=== PATIENT | female | born 1995 | race Caucasian/White ===

== ENCOUNTER 2017-05-03 10:55 | Emergency (ER) | payer BC ==
[~2017-05-03] VITALS: Ht 162.6 cm; Wt 90.7 kg
--- OUTSIDE RECORDS SUMMARY | 2017-05-03 11:08 | External Medical Summary Rpt | CCD ---
Author Author , ISABELLE WALTON Address Unknown Phone [email or web address] Immunization Name Date Rout CVX Reac Dose Comm Prov Is Faci e tion ent ider Refu lity Give sed n MCV4 08-2 147 999 Hist H135 No H135 UF 1-20 oric 15 al Info rmat ion - Sour ce Unsp ecif ied MCV4 07-2 147 999 Hist H135 No H135 UF 9-20 oric 09 al Info rmat ion - Sour ce Unsp ecif ied Tdap 07-2 115 999 Hist H135 No H135 , 9-20 oric Adso 09 al rbed Info rmat ion - Sour ce Unsp ecif ied DTaP 07-1 107 999 Hist H135 No H135 , UF 7-20 oric 02 al Info rmat ion - Sour ce Unsp ecif ied Aris 07-1 10 999 Hist H135 No H135 o-IP 7-20 oric V 02 al Info rmat ion - Sour ce Unsp ecif ied MMR 07-1 3 999 Hist H135 No H135 7-20 oric 02 al Info rmat ion - Sour ce Unsp ecif ied MMR 07-2 3 999 Hist H135 No H135 9-19 oric 99 al Info rmat ion - Sour ce Unsp ecif ied DTaP 07-2 107 999 Hist H135 No H135 , UF 9-19 oric 99 al Info rmat ion - Sour ce Unsp ecif ied Hep 03-0 8 999 Hist H135 No H135 B, 8-19 oric ped/ 99 al adol Info rmat ion - Sour ce Unsp ecif ied Aris 03-0 2 999 Hist H135 No H135 o-OP 8-19 oric V 99 al Info rmat ion - Sour ce Unsp ecif ied DTaP 12-2 107 999 Hist H135 No H135 , UF 1-19 oric 98 al Info rmat ion - Sour ce Unsp ecif ied Hib, 12-2 17 999 Hist H135 No H135 UF 1- oric 98 al Info rmat ion - Sour ce Unsp ecif ied DTaP 09- 107 999 Hist H135 No H135 , UF 8- oric 98 al Info rmat ion - Sour ce Unsp ecif ied Hib, 09- 17 999 Hist H135 No H135 UF 8- oric 98 al Info rmat ion - Sour ce Unsp ecif ied Aris - 10 999 Hist H135 No H135 o-IP 8- oric V 98 al Info rmat ion - Sour ce Unsp ecif ied Aris 05- 10 999 Hist H135 No H135 o-IP 9- oric V 98 al Info rmat ion - Sour ce Unsp ecif ied Hib, 05- 17 999 Hist H135 No H135 UF 9- oric 98 al Info rmat ion - Sour ce Unsp ecif ied DTaP 05- 107 999 Hist H135 No H135 , UF 9- oric 98 al Info rmat ion - Sour ce Unsp ecif ied Hep 03-3 8 999 Hist H135 No H135 B, 0-19 oric ped/ 98 al adol Info rmat ion - Sour ce Unsp ecif ied
--- OUTSIDE RECORDS SUMMARY | 2017-05-03 11:08 | External Medical Summary Rpt | CCD ---
Author Author , ISABELLE WALTON Address Unknown Phone [email or web address] Immunization Name Date Rout CVX Reac Dose [...]
--- OUTSIDE RECORDS SUMMARY | 2017-05-03 11:08 | External Medical Summary Rpt | CCD ---
Author Author [employer] Organization [employer] Address Unknown Phone Unavailable Purpose Continuity of Care Document - through 2016
--- OUTSIDE RECORDS SUMMARY | 2017-05-03 11:08 | External Medical Summary Rpt ---
Author Author HEMALATHANA Greenberg, ISABELLE [employer] Organization [employer] Address Unknown Phone Unavailable Payers Section Payer Plan Name Group ID Member ID Coverage Coverage Start End Date Date BLUE "" [id number] No No CROSS O/P 999 informati informati on in on in source source data data SPECIAL "" [id number] No No RISK informati informati SERVICES on in on in source source data data BLUE "" [id number] No No CROSS 999 informati informati on in on in source source data data BLUE "" [id number] No No CROSS 999 informati informati PHYSICIAN on in on in source source data data SPECIAL "" [id number] No No RISK informati informati SERVICES on in on in source source data data Results XR UPPER GI Observa Value Referen Units Interpr Notes Date tion ce etation Range XR \\.br\\ No No No No Nov 19 UPPER informa informa informa informa 2016 GI tion in tion in tion in tion in 10:01 source source source source AM data data data data [facility]\\.br\\ [address]\\.br \\ [facility] [place] [address]\\. br\\\\.br \\ ------- --NAME- ------- - NUMBER SEX AGE ADMIT DISC. XRAY# F/C TYPE\\.b r\\ KENDRA ROELLANA N [id number] F 20 11/20/15 11/20/15 [id number] BB O/P\\.br \\ DATE OF : [birth year] M/R# [id number] PH#: RM\\.br\\ LOCATIO N: TRANSCR IBED: 6 17:05\\. br\\ [place] [id number] COMPLET ED:11/06 09/21 11:09 CGS [id number]\\. br\\ Diagnos is: REFLUX\\ .br\\\\.b r\\ PHYSICI AN: EISENHA UER\\.br \\\\.br\\\\ .br\\=== ======= ======= ======= ======= ======= ======= ======= ======= ======= ======= ======\\ .br\\ RADIOLO GY REPORT\\ .br\\=== ======= ======= ======= ======= ======= ======= ======= ======= ======= ======= ======\\ .br\\ORD ER DATE and TIME: 016 1001\\.b r\\\\.br\\ \\.br\\AI R-CONTR AST UPPER GI, 11/20/19 16:\\.br \\\\.br\\C LINICAL HISTORY : Chest pressur e with history of gastroe sophage al reflux and\\.br \\distal esophag eal ulcer\\. br\\\\.br \\COMPAR JANN: Upper GI, 10/02/19 07\\.br\\ \\.br\\TE CHNIQUE : E-Z gas crystal s followe d by barium were adminis tered orally and\\.br \\multip le spot films of the esophag us, stomach , duodenu m obtaine d. 2.2 minutes \\.br\\of fluoros copy was utilize d for exam.\\. br\\\\.br \\FINDIN GS: The esophag us demonst rated normal caliber and mucosal pattern .\\.br\\T here is no hiatal hernia and no gastroe sophage al reflux could be elicite d.\\.br\\ There is no esophag eal ulcer and a 13 mm barium tablet passes into the stomach \\.br\\wi thout difficu lty. Primary esophag eal perista lsis is somewha t weakene d with\\.b r\\clear ance of the esophag us by seconda ry perista lsis in the supine positio n.\\.br\\ The stomach demonst rates normal caliber , perista lsis, and mucosal pattern .\\.br\\T here is no large gastric ulcer or mass. The duodenu m is unremar kable without \\.br\\ul cer, strictu re, or filling defect. \\.br\\\\. br\\IMPR ESSION: \\.br\\\\. br\\1. Weakene d primary esophag eal perista lsis versus esophag eal dysmoti lity.\\. br\\Othe rwise normal examina tion.\\. br\\\\.br \\\\.br\\E lectron ically Signed By:\\.br \\EDUAR MURILLO MD,RADI OLOGIST \\.br\\Da te/Time : 6 17:05\\. br\\ CT ABD WITH Observa Value Referen Units Interpr Notes Date tion ce etation Range CT ABD \\.br\\ No No No No Nov 10 WITH informa informa informa informa 2015 tion in on in tion in tion in 9:29 AM source source source source data data data data [facility]\\.br\\ [address]\\.br \\ [facility] [place] [address]\\. br\\\\.br \\ ------- --NAME- ------- - NUMBER SEX AGE ADMIT DISC. XRAY# F/C TYPE\\.b r\\ KENDRA ESTEBAN N [id number] F 20 11/16/15 11/16/15 [id number] BB O/P\\.br \\ DATE OF : 998 M/R# [id number] PH#: RM\\.br\\ LOCATIO N: TRANSCR IBED: 6 17:57\\. br\\ CT ABD WITH [id number] COMPLET ED:11/06 10:27 ASN [id number]\\. br\\ Diagnos is: GASTRIT IS\\.br\\ \\.br\\ PHYSICI AN: EISENHA UER\\.br \\\\.br\\\\ .br\\=== ======= ======= ======= ======= ======= ======= ======= ======= ======= ======= ======\\ .br\\ RADIOLO GY REPORT\\ .br\\=== ======= ======= ======= ======= ======= ======= ======= ======= ======= ======= ======\\ .br\\ORD ER DATE and TIME: 016 0929\\.b r\\\\.br\\ \\.br\\CT ABDOMEN WITH CONTRAS T, 11/16/19 16:\\.br \\\\.br\\C LINICAL HISTORY : Chest pain and upper abdomin al pain with hiatal hernia and\\.br \\gastro esophag eal reflux. History of esophag eal ulcer, gastrit is, and\\.br \\duoden itis.\\. br\\\\.br \\COMPAR JANN: None.\\. br\\\\.br \\TECHNI QUE: Multipl e axial images through the abdomen were obtaine d followi ng\\.br\\ the adminis tration of intrave nous and enteric contras t. This data was used to\\.br\\ perform coronal reconst ruction s. [employer] 's "Sure Exposur e 3D" automat ed\\.br\\ exposur e control was utilize d to reduce patient 's radiati on dose.\\. br\\\\.br \\FINDIN GS: The visuali zed lung bases are clear. The heart is at the upper\\. br\\limi ts of normal in size. The visuali zed osseous structu res are unremar kable.\\ .br\\\\.b r\\There is focal fatty infiltr ation along the fissure for the falcifo rm ligamen t\\.br\\t he liver. The gallbla dder is unremar kable. Gallsto cady are not exclude d by\\.br\\ CT. Granulo matous calcifi cations involve the spleen. There is persist ent\\.br \\ lobulat ion of the kidneys , more promine nt on the left. Pancrea s and\\.br \\adrena l glands are within normal limits area\\.b r\\\\.br\\ There is no appreci able enteric contras t within the visuali zed bowel. There\\. br\\is equivoc al minor contras t within the ascendi ng colon. The visuali zed\\.br \\stomac h, small bowel, and colon are unremar kable. The aorta is normal in\\.br\\ caliber . There is no adenopa thy or ascites within visuali zed abdomen .\\.br\\\\ .br\\IMP RESSION :\\.br\\\\ .br\\1. No acute intra-a bdomina l process .\\.br\\\\ .br\\2. Borderl ine cardiom egaly.\\ .br\\\\.b r\\\\.br\\ Electro nically Signed By:\\.br \\EDUAR MURILLO MD,RADI OLOGIST \\.br\\Da te/Time : 6 17:57\\. br\\ Choriogonadotropin.beta subunit ( test) [Presence] in Urine Observa Value Referen Units Interpr Notes Date tion ce etation Range Choriog NEGATIV NL: No No NOTE: Aug 28 onadotr E NEGATIV informa informa A urine 2015 opin.be E tion in tion in HCG 1:02 PM ta source source reporte subunit data data d as Positiv (pregna e, <25 ncy mIU/ml test) is not [Presen a ce] in definit Urine ivediag nosis of pregnan cy. A second specime n may need to be obtaine dand tested after 48 hours. If waiting 48 hours is not medical lyadvis able, the test result should be confirm ed using a quantit ativeHC G serum test. Choriogonadotropin.beta subunit ( test) [Presence] in Urine Observa Value Referen Units Interpr Notes Date tion ce etation Range Choriog NEGATIV NL: No No NOTE: Jul 11 onadotr E NEGATIV informa informa A urine 2015 opin.be E tion in tion in HCG 6:49 AM ta source source reporte subunit data data d as Positiv (pregna e, <25 ncy mIU/ml test) is not [Presen a ce] in definit Urine ivediag nosis of pregnan cy. A second specime n may need to be obtaine dand tested after 48 hours. If waiting 48 hours is not medical lyadvis able, the test result should be confirm ed using a quantit ativeHC G serum test. XR CHEST AP LA Observa Value Referen Units Interpr Notes Date tion ce etation Range XR No No No No Jun 18 CHEST informa informa informa informa 2016 AP LA tion in tion in tion in tion in 11:53 source source source source AM data data data data [facility]\\.br\\ [address]\\.br \\ [place] [place] [address]\\. br\\\\.br \\ RADIOLO GY REPORT\\ .br\\ Name: KENDRA Kramer\\.br\\ Patient #: [id number] Stay Type: O/P\\.br \\ Age: 19 Room:\\. br\\ : 998 Sex: F\\.br\\ Orderin g Phys: BRANDY FALCON MR#: [id number]\\. br\\ Family Phys: BRANDY FALCON Pt Phone: [phone]\\. br\\ Admitti ng Phys: BRANDY FALCON\\. br\\ Unsig daysi Transcr iptions represe nt a prelimi nary report and do\\.br\\ not reflect a medical or legal documen t.\\.b r\\\\.br\\ \\.br\\ [place] [id number] COMPLET E:06/18 12:01 AJJ [id number]\\. br\\ (REASON FOR CHEST: UPPER RESP INFECTI ON\\.br\\ \\.br\\\\. br\\\\.br \\ HISTORY : 19 year-ol d female with chest pain, cough, and shortne ss of breath. \\.br\\\\. br\\ FINDING S: PA and lateral radiogr aphs of the chest dated 06/18/19 16. No prior studies are\\.br \\ availab le for compari son.\\.b r\\\\.br\\ Several calcifi ed granulo mas bilater ally. No pulmona ry infiltr ate is identif ied. No pleural effusio n\\.br\\ or pneumot horax is seen. Heart size is normal. No acute displac ed rib fractur es are identif ied.\\.b r\\ Mild serpent ine scolios is of the thoraci c spine.\\ .br\\\\.b r\\ IMPRESS ION:\\.b r\\ No acute radiogr aphic abnorma lities are identif ied in the chest.\\ .br\\ Mild scolios is.\\.br \\\\.br\\ Electro nically reviewe d and signed by:\\.br \\ Hever EL MD\\.br\\ RADIOLO GIST/ 08:34\\. br\\\\.br \\ Dictati on Date/Ti me: 06/18/1513:02 Dictate d By: Hever EL MD RADIOLO [facility]\\.b r\\ Transcr . Date/Ti me: 06/18/15 16:15 Transcr . Init.: rj\\.br \\\\.br\\ Copy for: BRANDY WHITTAKER via fax\\.br \\\\.br\\ CHLAMYDIA AND GONORRHEA TESTING Observa Value Referen Units Interpr Notes Date tion ce etation Range COLLECT FCHD No No No No Jul 06 OR informa informa informa informa 2014 tion in tion in tion in tion in 3:30 PM source source source source data data data data ETHNICI WHITE, No No No No Jul 06 TY NON-HIS informa informa informa informa 2015 PANIC tion in tion in tion in tion in 3:30 PM source source source source data data data data KIT 3-31-15 No No No No Jul 06 EXPIRAT informa informa informa informa 2015 ION tion in tion in tion in tion in 3:30 PM DATE source source source source data data data data SYMPTOM NO No No No No Jul 06 S informa informa informa informa 2015 tion in tion in tion in tion in 3:30 PM source source source source data data data data REASON SEX No No No No Jul 06 FOR PARTNER informa informa informa informa 2015 REQUEST tion in tion in tion in tion in 3:30 PM REFERRA source source source source L data data data data SPECIME FEMALE No No No No Jul 06 N ENDOCER informa informa informa informa 2015 SOURCE VICAL tion in tion in tion in tion in 3:30 PM source source source source data data data data PREGNAN NO No No No No Jul 06 T informa informa informa informa 2014 tion in tion in tion in tion in 3:30 PM source source source source data data data data CHART [id number] No No No No Jul 06 NUMBER 98 informa informa informa informa 2015 tion in tion in tion in tion in 3:30 PM source source source source data data data data Chlamyd NEGATIV No No No NEGATIV Jul 06 ia E informa informa informa E 2015 trachom tion in tion in tion in RESULT= 3:30 PM atis source source source WITHIN rRNA data data data NORMAL [Presen ce] in LIMITSP Unspeci OSITIVE fied specime RESULT= n by Probe & ABNORMA target LEQUIVO JANN amplifi RESULT= cation method INDETER MINATEU NSATISF ACTORY RESULT= INVALID Neisser NEGATIV No No No NEGATIV Jul 06 ia E informa informa informa E 2015 gonorrh tion in tion in tion in RESULT= 3:30 PM oeae source source source WITHIN rRNA data data data NORMAL [Presen ce] in LIMITSP Unspeci OSITIVE fied specime RESULT= n by Probe & ABNORMA target LEQUIVO JANN amplifi RESULT= cation method INDETER MINATEU NSATISF ACTORY RESULT= INVALID THE APTIMA COMBO 2 ASSAY IS NOT INTENDE D FOR THE EVALUAT ION OF SUSPECT EDSEXUA L ABUSE OR FOR OTHER MEDICO- LEGAL INDICAT IONS. FOR THOSE PATIENT S FORWHOM A FALSE POSITIV E RESULT MAY HAVE ADVERSE PSYCHO- SOCIAL IMPACT, THE CDCRECO MMENDS RETESTI NG.\\.br \\This report contain s patient informa tion that must be protect ed in accorda nce with the Health Insuran ce Portabi lity and Account ability Act. CHLAMYDIA AND GONORRHEA TESTING Observa Value Referen Units Interpr Notes Date tion ce etation Range COLLECT FCHD No No No No Jul 06 OR informa informa informa informa 2014 tion in tion in tion in tion in 3:30 PM source source source source data data data data ETHNICI WHITE, No No No No Jul 06 TY NON-HIS informa informa informa informa 2015 PANIC tion in tion in tion in tion in 3:30 PM source source source source data data data data KIT --15 No No No No Jul 06 EXPIRAT informa informa informa informa 2015 ION tion in tion in tion in tion in 3:30 PM DATE source source source source data data data data SYMPTOM NO No No No No Jul 06 S informa informa informa informa 2015 tion in tion in tion in tion in 3:30 PM source source source source data data data data REASON SEX No No No No Jul 06 FOR PARTNER informa informa informa informa 2015 REQUEST tion in tion in tion in tion in 3:30 PM REFERRA source source source source L data data data data SPECIME FEMALE No No No No Jul 06 N ENDOCER informa informa informa informa 2015 SOURCE VICAL tion in tion in tion in tion in 3:30 PM source source source source data data data data PREGNAN NO No No No No Jul 06 T informa informa informa informa 2015 tion in tion in tion in tion in 3:30 PM source source source source data data data data CHART [id number] No No No No Jul 06 NUMBER 98 informa informa informa informa 2015 tion in tion in tion in tion in 3:30 PM source source source source data data data data Chlamyd Pending No No No No Jul 06 ia informa informa informa informa 2015 trachom tion in tion in tion in tion in 3:30 PM atis source source source source rRNA data data data data [Presen ce] in Unspeci fied specime n by Probe & target amplifi cation method Neisser Pending No No No \\.br\\Jul 06 ia informa informa informa is 2015 gonorrh tion in tion in tion in report 3:30 PM oeae source source source contain rRNA data data data s [Presen patient ce] in Unspeci informa fied tion specime that n by must be Probe & target protect ed in amplifi accorda cation nce method with the Health Insuran ce Portabi lity and Account ability Act. ANKLE LEFT 3 VIEWS Observa Value Referen Units Interpr Notes Date tion ce etation Range ANKLE No No No No Nov 29 LEFT 3 informa informa informa informa 2011 VIEWS tion in tion in tion in tion in 3:57 PM [place] source source source source COUNTY data data data data [facility]OS[facility]\\.br\\ [address]\\.br \\ [place] [address]\\. br\\\\.br \\ RADIOLO GY REPORT\\ .br\\ Name: KENDRA Kramer\\.br\\ Patient #: [id number] Stay Type: E/R\\.br \\ Age: 16 Room: [facility]\\. br\\ : 998 Sex: F\\.br\\ Orderin g Phys: LOPEZ RO MR#: [id number]\\. br\\ Family Phys: BRANDY FALCON Pt Phone: [phone] /[phone]\\. br\\ Admitti ng Phys: LOPEZ RO\\.br\\ Unsig daysi Transcr iptions represe nt a prelimi nary report and do\\.br\\ not reflect a medical or legal documen t.\\.b r\\\\.br\\ ANKLE LEFT 3 VIEWS [id number] COMPLET E:05/06 17:04 VDW [id number]\\. br\\\\.br \\\\.br\\ EXAMINA TION: Three views of the left ankle dated 012.\\.b r\\\\.br\\ CLINICA L HISTORY : Lateral left ankle pain followi ng twistin g injury. \\.br\\\\. br\\ COMPARI SON: None.\\. br\\\\.br \\ FINDING S: There is no acute fractur e or disloca tion. There is mild diffuse soft tissue swellin g\\.br\\ about the left ankle without a definit e tibiota lar effusio n.\\.br\\ \\.br\\ IMPRESS ION: No acute osseous abnorma lity of the left ankle.\\ .br\\\\.b r\\ Electro nically reviewe d and signed by:\\.br \\ JANETTE MURILLO MD\\.br\\ RADIOLO GIST/ 14:14\\. br\\\\.br \\ Dictati on Date/Ti me: 2 08:55 Dictate d By: JANETTE MURILLO MD RADIOLO GIST\\.b r\\ Transcr . Date/Ti me: 2 10:30 Transcr . Init.: csv\\.br \\\\.br\\ Copy for: JESSICA Ross M.D.\\.b r\\ Copy for: BRANDY WHITTAKER M.D. via fax\\.br \\ Copy for: 073 [facility]ALTH INFORMA TION MANAGEM ENT\\.br \\ DISCHAR GED\\.br \\\\.br\\ Choriogonadotropin.beta subunit ( test) [Presence] in Urine Observa Value Referen Units Interpr Notes Date tion ce etation Range BETA NEGATIV NL: ATIVE No No May 06 HCG (U) E NEGATIV informa informa 2011 E tion in tion in 4:06 PM source source data data NOTE: No No No No May 06 A urine informa informa informa informa 2012 HCG tion in tion in ti in tion in 4:06 PM reporte source source source source d as data data data data Positiv e, <25 mIU/ml is not a definit bibi diagnos No No No No May 06 is of informa informa informa informa 2011 pregnan tion in tion in ti in tion in 4:06 PM cy. A source source source source second data data data data specime n may need to be obtaine d and No No No No May 06 tested informa informa informa informa 2011 after tion in tion in tion in tion in 4:06 PM 48 source source source source hours. data data data data If waiting 48 hours is not medical ly advisab No No No No May 06 le, the informa informa informa informa 2011 test tion in tion in tion in tion in 4:06 PM result source source source source should data data data data be confirm ed using a quantit ative HCG No No No No May 06 serum informa informa informa informa 2012 test. tion in tion in tion in tion in 4:06 PM source source source source data data data data
--- OUTSIDE RECORDS SUMMARY | 2017-05-03 11:08 | External Medical Summary Rpt | CCD ---
Author Author , ISABELLE WALTON Address Unknown Phone [email or web address] Purpose Continuity of Care Document - 05-06-2012 through 2016 Results Labs Lab Lab Date Result Refere Interp Status Commen Order Detail nces retati t Range on Choriogonadotropin.beta subunit ( test) [Presence] in Urine (08-29-2015 12:45) Choriog NEGATIV NL: complet onadotr 016 E NEGATIV ed opin.be 12:45 E ta subunit (pregna ncy test) [Presen ce] in Urine Choriogonadotropin.beta subunit ( test) [Presence] in Urine (07-11-2015 06:35) Choriog NEGATIV NL: complet onadotr 016 E NEGATIV ed opin.be 06:35 E ta subunit (pregna ncy test) [Presen ce] in Urine CHLAMYDIA AND GONORRHEA TESTING (07-06-2014 15:30) Chlamyd NEGATIV complet ia 015 E ed trachom 15:30 atis rRNA [Presen ce] in Unspeci fied specime n by Probe & target amplifi cation method Neisser NEGATIV complet ia 015 E ed gonorrh 15:30 oeae rRNA [Presen ce] in Unspeci fied specime n by Probe & target amplifi cation method CHLAMYDIA AND GONORRHEA TESTING (07-06-2014 15:30) COLLECT FCHD complet OR 015 ed 15:30 ETHNICI WHITE, complet TY 015 NON-HIS ed 15:30 PANIC KIT 15 complet EXPIRAT 015 ed ION 15:30 DATE SYMPTOM NO complet S 015 ed 15:30 REASON SEX complet FOR 015 PARTNER ed REQUEST 15:30 REFERRA L SPECIME FEMALE complet N 015 ENDOCER ed SOURCE 15:30 VICAL PREGNAN NO complet T 015 ed 15:30 CHART [id number] complet NUMBER 015 98 ed 15:30 Chlamyd Pending complet ia 015 ed trachom 15:30 atis rRNA [Presen ce] in Unspeci fied specime n by Probe & target amplifi cation method Neisser Pending complet ia 015 ed gonorrh 15:30 oeae rRNA [Presen ce] in Unspeci fied specime n by Probe & target amplifi cation method HCG URINE QUAL (05-06-2012 15:55) BETA 05-06-2 NEGATIV NL: complet HCG (U) 012 E ATIVE NEGATIV ed 15:55 E NOTE: A complet 012 urine ed 15:55 HCG reporte d as Positiv e, <25 mIU/ml is not a definit bibi diagnos complet 012 is of ed 15:55 pregnan cy. A second specime n may need to be obtaine d and complet 012 tested ed 15:55 after 48 hours. If waiting 48 hours is not medical ly advisab complet 012 le, the ed 15:55 test result should be confirm ed using a quantit ative HCG complet 012 serum ed 15:55 test. Choriogonadotropin.beta subunit ( test) [Presence] in Urine (05-06-2012 15:55) BETA 05-06-2 NEGATIV NL: complet HCG (U) 012 E NEGATIV ed 15:55 E NOTE: A complet 012 urine ed 15:55 HCG reporte d as Positiv e, <25 mIU/ml is not a definit bibi diagnos complet 012 is of ed 15:55 pregnan cy. A second specime n may need to be obtaine d and complet 012 tested ed 15:55 after 48 hours. If waiting 48 hours is not medical ly advisab complet 012 le, the ed 15:55 test result should be confirm ed using a quantit ative HCG complet 012 serum ed 15:55 test.
--- OUTSIDE RECORDS SUMMARY | 2017-05-03 11:08 | External Medical Summary Rpt ---
Author Author HEMALATHANA Greenberg, [employer]ELLE [employer] Address Unknown Phone Unavailable Payers Section Payer Plan Name Group ID Member ID Coverage Coverage Start End Date Date BLUE "" [id number] No No CROSS O/P 999 informati informati on in on in source source data data SPECIAL "" [id number] No No RISK informati informati SERVICES on in on in source source data data BLUE "" [id number] No No CROSS 999 informati informati on in on in source source data data BLUE "" [id number] No No CROSS 999 informati informati PHYSICIAN on in on in source source data data SPECIAL "" [id number] No No RISK informati informati SERVICES on in on in source source data data Results XR UPPER GI Observa Value Referen Units Interpr Notes Date tion ce etation Range XR \\.br\\ No No No No Nov 19 UPPER informa informa informa informa 2016 GI tion in tion in tion in tion in 10:01 source source source source AM data data data data [facility]\\.br\\ [address]\\.br \\ [facility] [place] [address]\\. br\\\\.br \\ ------- --NAME- ------- - NUMBER SEX AGE ADMIT DISC. XRAY# F/C TYPE\\.b r\\ KENDRA ORELLANA N [id number] F 20 11/20/15 11/20/15 08061 BB O/P\\.br \\ DATE OF : 9[birth year] M/R# [id number] PH#: RM\\.br\\ LOCATIO N: TRANSCR IBED: 6 17:05\\. br\\ [place] [id number] COMPLET ED:11/06 09/21 11:09 CGS 04360\\. br\\ Diagnos is: REFLUX\\ .br\\\\.b r\\ PHYSICI [...] source source source data data data data [facility]\\.br\\ [address]\\.br \\ [facility] Y [address]\\. br\\\\.br \\ ------- --NAME- ------- - NUMBER SEX AGE ADMIT DISC. XRAY# F/C TYPE\\.b r\\ KENDRA ESTEBAN N [id number] F 20 11/16/15 11/16/15 86745 BB O/P\\.br \\ DATE OF : 9[birth year] M/R# [id number] PH#: RM\\.br\\ LOCATIO N: TRANSCR IBED: 6 17:57\\. br\\ CT ABD WITH [id number] COMPLET ED:11/06 10:27 ASN 99733\\. br\\ Diagnos is: GASTRIT IS\\.br\\ \\.br\\ PHYSICI [...] source source AM data data data data [facility]\\.br\\ [address]\\.br \\ [facility] [address]\\. br\\\\.br \\ RADIOLO GY REPORT\\ .br\\ Name: KENDRA Kramer\\.br\\ Patient #: [id number] Stay Type: O/P\\.br \\ Age: 19 Room:\\. br\\ : 998 Sex: F\\.br\\ Orderin g Phys: BRANDY FALCON MR#: [id number]\\. br\\ Family Phys: BRANDY FALCON Pt Phone: [phone] /[phone]\\. br\\ Admitti ng Phys: BRANDY FALCON\\. br\\ Unsig daysi Transcr iptions represe nt a prelimi nary report and do\\.br\\ not reflect a medical or legal documen t.\\.b r\\\\.br\\ \\.br\\ [place] [id number] COMPLET E:06/18 12:01 AJJ [id number]\\. br\\ (REASON FOR CHEST: UPPER RESP INFECTI [...] Dictate d By: Hever EL MD [facility]\\.b r\\ Transcr . Date/Ti me: [...] source source data data data data CHART [id number] No No No No Jul 06 NUMBER [...] source source data data data data CHART [id number] No No No No Jul 06 NUMBER [...] [address]\\.br \\ [place] [address]\\. br\\\\.br \\ RADIOLO GY REPORT\\ .br\\ Name: KENDRA Kramer\\.br\\ Patient #: [id number] Stay Type: E/R\\.br \\ Age: 16 Room: [facility]\\. br\\ : 998 Sex: F\\.br\\ Orderin g Phys: LOPEZ RO MR#: [id number]\\. br\\ Family Phys: BRANDY FALCON Pt Phone: [phone]\\. br\\ Admitti ng Phys: LOPEZ RO\\.br\\ Unsig daysi Transcr iptions represe nt a prelimi nary report and do\\.br\\ not reflect a medical or legal documen t.\\.b r\\\\.br\\ ANKLE LEFT 3 VIEWS [id number] COMPLET E:05/06 17:04 VDW [id number]\\. br\\\\.br \\\\.br\\ EXAMINA TION: Three views of [...]
--- OUTSIDE RECORDS SUMMARY | 2017-05-03 11:08 | External Medical Summary Rpt | CCD ---
Author Author , ISABELLE WALTON Address Unknown Phone [email or web address] Purpose Continuity of Care Document - 05-06-2012 [...] NO complet T 015 ed 15:30 CHART [id number] complet NUMBER [id number] 98 ed 15:30 Chlamyd [...]
[2017-05-03 11:22] LABS: UTC STREP SCREEN NOT DETECTED (NOTDETECTED)
--- NOTE | 2017-05-03 11:34 | Urgent Treatment Center Report ---
History of Present Issue Date/Time Seen by Provider 05/03/17 1134 Visit Reason Pt arrived:Walked Presenting Problem:PT STATES CHEST CONGESTION, COUGH, FEVER AND CHILLS Location if Accident: Onset of symptoms date/time:/ or onset unknown for:MEDICAL HX UNKNOWN Have you (or family members/close friends) recently traveled outside the [place]? N If Yes, where/when: Have you had exposure to infectious disease within the past month? TB? Other? Specify: c/o cough, chest congestion, SOA (worse with exertion, requesting inhaler), wheezing x 3-4 days. Has felt feverish but hasn't checked temp. + tobacco use. No treatment prior to arrival. No known sick contacts. 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 Source patient Exam Limitations no limitations ALLERGIES Coded Allergies: No Known Allergies (05/03/17) History Medical History General CAD? No Angina: No SC: No Hypertension? No Hyperlipidemia? No CHF? No DVT? No PE? No COPD? No Asthma? No Anemia? No GERD? No Gastric ulcers? No GI Bleed? No Hernia? No Thyroid Problems? No Hypothyroidism? No CVA? No Seizures? No Diabetes? No Renal Insuffiency? No UTI? No Stones? No BPH? No GB Disease: No Nephritic Syndrome? No Asplenia? No Hepatitis? No Sickle Cell Disease? No Arthritis? No Migraines? No Cataracts? No Glaucoma? No MRSA? No HIV? No TB? No Anxiety? No Depression? No Cancer? No More? No Immunization HX DT/Tetanus 5-10 Years Ago Surgical Hx Previous Surgery?N Social History Smoking Hx Smoker: Never Smoker Tobacco: No Alcohol Alcohol: No Review of Systems All Other Systems Reviewed and Negative Constitutional see HPI, denies malaise Eyes denies drainage ENT see HPI, nose discharge, nose congestion. denies: ear pain, ear discharge, throat pain. Respiratory see HPI, cough (nonprod), wheezing ("only at night") Cardiovascular denies chest pain, denies palpitations Gastrointestinal denies no symptoms reported Musculoskeletal denies joint pain Skin denies rash Psychiatric/Neurological headache (mild, intermittent, w/ cough) Physical Exam Vital Signs Vital Signs Date Time Temp Pulse Resp B/P Pulse O2 O2 Flow FiO2 Ox Delivery Rate 05/03 1112 98.4 78 20 146/70 96 General Appearance normal appearance, no apparent distress Eye Exam - bilateral eye normal exam Ear, Nose, Throat normal ENT inspection Neck non-tender, supple Respiratory Status Yes: trachea midline, chest symmetrical, non productive cough (worse with deep breaths). No: respiratory distress, use of accessory muscles, pain on inspiration, pain on expiration. Lung Sounds anterior: lungs clear. posterior: lungs clear. bilateral: lungs clear. Cardiovascular regular rate/rhythm, no peripheral edema, no murmur Neurologic alert, oriented x 3 Mental status normal mood/affect Skin normal color, warm/dry Lymphatic no adenopathy Medical Decision Making LABS/Meds/Orders Pt receiving controlled substance in ED? No Results/Orders Laboratory Tests 05/03/17 1119: Influenza Type A Ag NOT DETECTED, Influenza Type B Ag NOT DETECTED, Group A Strep Screen NOT DETECTED Orders Procedure Date/time Status UTC STREP SCREEN 05/03 1119 Complete UTC FLU A,B 05/03 1119 Complete Departure Departure Time of Disposition 1215 Disposition DC Home or Self Care(routine) Clinical Impression Primary Impression: Acute bronchitis Qualifiers: Bronchitis organism: unspecified organism Qualified Code: J20.9 - Acute bronchitis, unspecified Secondary Impressions: Tobacco abuse Condition STABLE Referrals PANFILO NAVA (Family) IMMEDIATELY for new or worsening symptoms OR no noticeable improvement over the next 48-72 hours. 911 for difficulty breathing. Patient Instructions DI for Acute Bronchitis Additional Instructions * STOP SMOKING!!!! * * No sign of bacterial infection. Likely viral. Virus can take 7-14 days to run their course * Monitor Temp. Feeling feverish is not the same as having a fever. Tylenol every 4 hours as needed no more then 5 times a day or 4000mg in 24 hours and/or ibuprofen every 6 hours as needed no more then 3200mg in 24 hours (as long as your primary care doctor has told you that it is ok to take both) for fever/ aches/pain. ER if fever no less than 101 despite tylenol and ibuprofen * humidifier/vaporizer/hot steamy shower * Inhaler as you requested can be used every 4-6 hours as needed like we discussed. If unsure how to use it, ask pharmacist to demonstrate how. Should help open airways and improve cough, wheezing, shortness of breath. * Mucinex during the day for your cough and cough suppressant only at night. Be sure to drink lots of water. Insurance may not cover a prescription of mucinex. Might be cheaper to get 400mg tablets and take 2 tablets morning, midday and evening all with lots of water. * Promethazine DM cough syrup will cause drowsiness. Use it only at night. No driving, operating machinery or caring for small children after taking it. * Start steroid today. Helps with inflammation therefore, cough and wheezing. Follow directions on package. Rvwd side effects. Pt reports they have taken them before. Discharge Counseling Counseled pt/family regarding diagnosis, test results, medications/RX, home care, follow up needs Prescriptions Current Visit Scripts ALBUTEROL (Proventil Hfa Inhaler) 1-2 PUFF IH Q4-6H PRN PRN SOA, wheezing #1 CAN PROMETHAZINE/DEXTROMETHORPHAN (Promethazine-Dm Syrup) 10 ML PO QHSP PRN cough #120 ML will cause drowsiness Prednisone (Prednisone 20MG) 20 MG PO BID #10 TAB at 1221
[2017-05-03] MEDS ORDERED: PREDNISONE 20MG20 MG PO (12:19)
[2017-05-03] MEDS ORDERED: PROVENTIL0.09 MG/A1 IH (12:19)
[2017-05-03] MEDS ORDERED: PROMETHAZINE D118 ML PO (12:19)
[2017-05-03 12:20] VITALS: BP 146/70
== END 2017-05-03 12:21 | disposition home or self-care (01) ==
LOC: UTC 10:55
PROVIDERS: Nurse Practitioner Family
DX: J20.9 Acute bronchitis, unspecified (principal); F17.210 Nicotine dependence, cigarettes, uncomplicated